=== PATIENT | male | born 1960 | race Caucasian/White ===

== ENCOUNTER 2021-12-30 08:10 | Inpatient (IN) ==
[2021-12-30] MEDS ORDERED: ONDANSETRON INJ 2 MG/ML 2 ML VIAL IV STA (08:32)
[2021-12-30] MEDS ORDERED: SODIUM CHLORIDE 0.9% 1000ML 2,000 ML IV ONE (08:32)
--- NOTE | 2021-12-30 08:34 | Emergency Department Note ---
Impression & Plan Pancolitis, Hypomagnesemia, Acute dehydration, Exacerbation of Crohn's disease, Failure of outpatient treatment ED Provider Note Name: BERNA ELLIOTT Age: 61 Sex: M Arrives Via: Walk-In Informant: Patient ED Provider: Alejo Ham MD Chief Complaint: Illness Impression: As per impressions above Medical Decision Makin-year-old male diagnosed with Crohn's within the last year dealt with on and off issues with diarrhea abdominal cramping however the last few weeks have been much worse in the last few days he has been severely weak, with and unable to keep down anything. He arrives hypotensive severely dehydrated appearing and in mild distress. He has some vague diffuse abdominal tenderness palpation but no definitive peritonitis. Labs obtained including lactic acid. Fortunately lactate is normal he is afebrile there is no clear evidence of sepsis at this time. He was given 2 L IV fluids with vast improvement of his blood pressure. Given these issues no previous oral contrast CT I did feel getting CT abdomen pelvis was indicated. Imaging does show significant pancolitis. Labs with mild hypokalemia and given the severity of his illness, his initial hypotension and the CT findings, I suspect he needs to come in for further management and he and are on board with that. Prior Medical Record and Triage/Nursing Notes reviewed by Me Additional history obtained from chart Differentials:Appendicitis, crohn's, anemia, infections, diverticulitis, UTI, obstruction, mesenteric ischemia, aortic pathology, inflammatory bowel disease, renal colic, PUD, pancreatitis, biliary pathology, hernia, volvulus, constipation, as well as other pathologies. Vital Signs: reviewed and remarkable for hypotension Interventions: Normal saline bolus 2 L IV, Solu-Medrol 40 mg IV, magnesium 1 g IV Labs:Reviewed and remarkable for hypomagnesia Imaging:CT abdomen pelvis as per radiologist diffuse pancolitis Consults:Dr. Riley Plan: Disposition:Hospitalization Condition: Good History of Present Illness:Two 1-year-old male arrives for evaluation of illness. Patient notes he has been dealing with worsening abdominal issues over the last few months. Back in October he was diagnosed with a rectal abscess which was drained and he was hospitalized overnight. Since then he has been seen by GI and had an upper and lower endoscopy which revealed evidence of Crohn's disease. Does note some history of irritable bowel type syndromes but no diagnosis of control now for Crohn's. Since then he has been dealing with w orsening diarrhea and generalized fatigue and illness. He notes worsening weakness the last few days. He states he is having trouble with ambulation and standing up. He was seen by GI few days ago who did some labs. He had been on some steroids without improvement. Due to worsening weakness and fatigue he was sent to the ER for further evaluation. Patient denies any black or bloody stools recently. He denies any fevers, chills, syncope, chest pain, shortness of breath, back pain, significant abdominal pain, leg swelling, rashes, headaches or other signs or symptoms. He is not on any recent antibiotics. No recent falls, trauma, injuries. Exertion makes worse and rest makes better. He notes periodic emesis without blood in it. ROS: See above HPI for pertinent positives & negatives. A total of 10 systems reviewed and were otherwise negative. Past Medical History:Crohn's disease, left bundle branch block, mild cardiomyopathy, hypertension, elevated PSA Past Surgical History:Tonsillectomy, right lower leg amputation Family History:See Below Social History:See Below Home Medications:See Below Allergies:nkda Vitals:Blood Pressure: 84/56, Pulse 91, RR 16, T 36.9C, O2 98% on RA Physical Exam: GENERAL: Patient is unwell appearing and in mild distress. Tired,pale, EYES: No scleral icterus, unremarkable pupils. ENT: Mucous membranes dry, no nasal congestion. NECK: No masses appreciated, nomeningismus, trachea is midline. RESPIRATORY: No dyspnea. Clear to auscultation and equal bilaterally. No wheeze, no rhonchi. CARDIOVASCULAR: Regular rate and rhythm.No murmurs, rubs, gallops appreciated. GASTROINTESTINAL: Abdomen soft, non-tender, no peritonitis.Bowel sounds positive.No masses appreciated. BACK: No midline tenderness, no CVA tenderness EXTREMITIES: Normal motion all extremities, no cyanosis, no edema. NEUROLOGIC: Alert and oriented, no acute motor or sensory deficits, no focal weakness, cranial nerves grossly intact. SKIN: No rash, no jaundice, no diaphoresis. PSYCH: Appropriate GCS: 15 ED Course: Times/Reassessments: Does look significantly improved with fluids however still quite weak. Alejo Ham MD Past Med/Surg History Medical History Diuretic-induced hypokalemia H/O lower limb amputation LBBB (left bundle branch block) Peripheral edema Surgical History S/P below knee amputation S/P tonsillectomy Family History Father Diabetes Other Cardiac disorder Hypertension Social History Smoking Status: Never smoker Second Hand Exposure: No; Do You Dip or Chew Tobacco: No; Tobacco Cessation Education Requested by Patient: No Hx Alcohol Use: Yes Alcohol type: beer, wine and hard liquor Hx Substance Use: No Preferred Language: [place] Communication Ability: Effective Senior Search Marketing Analyst Required: No Beliefs That Will Affect Care: Quaker marital status: Current Living Situation: Spouse current occupational status: employed current occupation: Vice President Of Finance Other Information That Helps Us Care for You: No Feels Safe at Home: Yes Safety Concerns: Feels Safe At This Time Assistive Devices: None Allergies Allergies Allergy/AdvReac Type Severity Reaction Status Date / Time No Known Allergies Allergy Verified 12/30/21 09:15 Home Meds Home Medications Medication Instructions Recorded Confirmed carvedilol 25 mg tablet 25 mg PO BID tab 03/30/20 12/30/21 budesonide 3 mg 3 mg PO TID ea 12/28/21 12/30/21 capsule,delayed,extended release ferrous sulfate 325 mg (65 mg 325 mg PO DAILY 12/28/21 12/30/21 iron) tablet loperamide 2 mg tablet (Imodium 2 mg PO DIRECTED PRN 12/30/21 12/30/21 A-D) promethazine 50 mg tablet 50 mg PO Q4H PRN 12/30/21 12/30/21 Previous Rx's Medication Instructions Recorded potassium chloride 20 mEq 40 meq PO BID #360 tab 12/15/21 tablet,extended release(part/cryst) Results & Data (ED) Vital Signs Vital Signs - 24 hr 12/30/21 08:14 12/30/21 08:54 12/30/21 10:11 Temperature 36.9 C Temperature Source Oral Pulse Rate 91 H Pulse Rate [Right Finger] 86 80 Pulse Rhythm [Right Finger] Regular Regular Pulse Strength [Right Finger] Normal Normal Respiratory Rate 16 17 17 Respiratory Effort / Characteristics Non-Labored Spontaneous Non-Labored Spontaneous Respiratory Depth Normal Normal Respiratory Pattern Regular Regular Blood Pressure 84/56 L Blood Pressure [Left Arm] 91/51 L 114/62 Blood Pressure Mean 65 Blood Pressure Mean [Left Arm] 64 79 Blood Pressure Position [Left Arm] Lying Lying Pulse Oximetry 98 97 97 Oxygen Delivery Method Room Air Room Air Room Air Sepsis Recent Fever Within 48 Hours No Sepsis New/Unexplained Change in Mental Status No Sepsis Action Taken by Nursing No Action Required Laboratory Data Result diagrams: 12/30/21 08:50 12/30/21 08:50 Lab Results 12/30/21 12/30/21 12/30/21 Range/Units 08:50 08:50 08:50 WBC (4.8-10.8) K/uL RBC (4.7-6.1) M/uL Hgb (14.0-18.0) g/dL Hct (42-52) % MCV (80-100) fL MCH (25-34) pg MCHC (32-36) g/dL RDW Std Deviation (36.4-46.3) fL RDW Coeff of Johnna (11.5-14.5) % Plt Count (130-400) K/uL MPV (7.4-10.4) fL Immature Gran % (Auto) % Neut % (Auto) % Lymph % (Auto) % Baker % (Auto) % Eos % (Auto) % Baso % (Auto) % Neut # (Auto) (1.4-6.5) K/uL Lymph # (Auto) (1.2-3.4) K/uL Baker # (Auto) (0.11-0.59) K/uL Eos # (Auto) (0-0.5) K/uL Baso # (Auto) (0-0.2) K/uL Immature Gran # (Auto) (0.00-0.02) K/uL Echinocytes ESR 46 H (0-20) mm/hr Sodium 132 L (136-145) mmol/L Potassium 4.2 (3.5-5.1) mmol/L Chloride 104 (98-107) mmol/L Carbon Dioxide 22 (21-32) mmol/L Anion Gap 6 (3-11) BUN 17 (6-23) mg/dl Creatinine 1.07 (0.6-1.4) mg/dl Est Cr Clr Drug Dosing 83.4 ml/min Est GFR ( Amer) 86.4 ml/min Est GFR (Non-Af Amer) 74.5 ml/min BUN/Creatinine Ratio 15.9 (10-20) Glucose 115 H (70-99(Fasting)) mg/dl Lactate 0.9 (0.4-2.0) mmol/L Calcium 7.4 L (8.5-10.1) mg/dl Magnesium 1.5 L (1.7-2.4) mg/dl Total Bilirubin 0.9 (0.2-1.0) mg/dl Direct Bilirubin 0.2 (0-0.2) mg/dl AST 6 L (13-39) U/L ALT 13 (7-52) U/L Alkaline Phosphatase 63 (34-104) U/L Troponin I High Sens 6.6 (0-20) pg/ml C-Reactive Protein 13.16 H (0-0.5) mg/dl Total Protein 5.2 L (6.0-8.3) gm/dl Albumin 2.2 L (3.4-5.0) gm/dl Lipase 3 L (11-82) U/L Procalcitonin (0-0.5) ng/ml Urine Color Urine Appearance (Clear) Urine pH (4.5-7.5) Ur Specific [place] (1.000-1.030) Urine Protein (Negative) Urine Glucose (UA) (Negative) Urine Ketones (Negative) Urine Blood (Negative) Urine Nitrite (Negative) Urine Bilirubin (Negative) Urine Urobilinogen (Negative) Ur Leukocyte Esterase (Negative) Lyme Disease IgG Ab (Negative) Lyme Disease IgM Ab (Negative) SARS-CoV-2, RNA, NAAT (NEGATIVE) 12/30/21 12/30/21 12/30/21 Range/Units 08:50 08:50 10:30 WBC 8.66 (4.8-10.8) K/uL RBC 4.27 L (4.7-6.1) M/uL Hgb 10.5 L (14.0-18.0) g/dL Hct 32.4 L (42-52) % MCV 75.9 L (80-100) fL MCH 24.6 L (25-34) pg MCHC 32.4 (32-36) g/dL RDW Std Deviation 43.1 (36.4-46.3) fL RDW Coeff of Johnna 15.4 H (11.5-14.5) % Plt Count 400 (130-400) K/uL MPV 8.1 (7.4-10.4) fL Immature Gran % (Auto) 0.5 % Neut % (Auto) 74.7 % Lymph % (Auto) 21.4 % Baker % (Auto) 1.4 % Eos % (Auto) 2.0 % Baso % (Auto) 0.0 % Neut # (Auto) 6.48 (1.4-6.5) K/uL Lymph # (Auto) 1.85 (1.2-3.4) K/uL Baker # (Auto) 0.12 (0.11-0.59) K/uL Eos # (Auto) 0.17 (0-0.5) K/uL Baso # (Auto) 0.00 (0-0.2) K/uL Immature Gran # (Auto) 0.04 H (0.00-0.02) K/uL Echinocytes 1+ ESR (0-20) mm/hr Sodium (136-145) mmol/L Potassium (3.5-5.1) mmol/L Chloride (98-107) mmol/L Carbon Dioxide (21-32) mmol/L Anion Gap (3-11) BUN (6-23) mg/dl Creatinine (0.6-1.4) mg/dl Est Cr Clr Drug Dosing ml/min Est GFR ( Amer) ml/min Est GFR (Non-Af Amer) ml/min BUN/Creatinine Ratio (10-20) Glucose (70-99(Fasting)) mg/dl Lactate (0.4-2.0) mmol/L Calcium (8.5-10.1) mg/dl Magnesium (1.7-2.4) mg/dl Total Bilirubin (0.2-1.0) mg/dl Direct Bilirubin (0-0.2) mg/dl AST (13-39) U/L ALT (7-52) U/L Alkaline Phosphatase (34-104) U/L Troponin I High Sens (0-20) pg/ml C-Reactive Protein (0-0.5) mg/dl Total Protein (6.0-8.3) gm/dl Albumin (3.4-5.0) gm/dl Lipase (11-82) U/L Procalcitonin 0.34 (0-0.5) ng/ml Urine Color [place] Urine Appearance Clear (Clear) Urine pH 5.5 (4.5-7.5) Ur Specific [place] 1.007 (1.000-1.030) Urine Protein Negative (Negative) Urine Glucose (UA) Negative (Negative) Urine Ketones Negative (Negative) Urine Blood Negative (Negative) Urine Nitrite Negative (Negative) Urine Bilirubin Negative (Negative) Urine Urobilinogen Negative (Negative) Ur Leukocyte Esterase Negative (Negative) Lyme Disease IgG Ab Negative (Negative) Lyme Disease IgM Ab Negative (Negative) SARS-CoV-2, RNA, NAAT (NEGATIVE) 12/30/21 Range/Units 11:40 WBC (4.8-10.8) K/uL RBC (4.7-6.1) M/uL Hgb (14.0-18.0) g/dL Hct (42-52) % MCV (80-100) fL MCH (25-34) pg MCHC (32-36) g/dL RDW Std Deviation (36.4-46.3) fL RDW Coeff of Johnna (11.5-14.5) % Plt Count (130-400) K/uL MPV (7.4-10.4) fL Immature Gran % (Auto) % Neut % (Auto) % Lymph % (Auto) % Baker % (Auto) % Eos % (Auto) % Baso % (Auto) % Neut # (Auto) (1.4-6.5) K/uL Lymph # (Auto) (1.2-3.4) K/uL Baker # (Auto) (0.11-0.59) K/uL Eos # (Auto) (0-0.5) K/uL Baso # (Auto) (0-0.2) K/uL Immature Gran # (Auto) (0.00-0.02) K/uL Echinocytes ESR (0-20) mm/hr Sodium (136-145) mmol/L Potassium (3.5-5.1) mmol/L Chloride (98-107) mmol/L Carbon Dioxide (21-32) mmol/L Anion Gap (3-11) BUN (6-23) mg/dl Creatinine (0.6-1.4) mg/dl Est Cr Clr Drug Dosing ml/min Est GFR ( Amer) ml/min Est GFR (Non-Af Amer) ml/min BUN/Creatinine Ratio (10-20) Glucose (70-99(Fasting)) mg/dl Lactate (0.4-2.0) mmol/L Calcium (8.5-10.1) mg/dl Magnesium (1.7-2.4) mg/dl Total Bilirubin (0.2-1.0) mg/dl Direct Bilirubin (0-0.2) mg/dl AST (13-39) U/L ALT (7-52) U/L Alkaline Phosphatase (34-104) U/L Troponin I High Sens (0-20) pg/ml C-Reactive Protein (0-0.5) mg/dl Total Protein (6.0-8.3) gm/dl Albumin (3.4-5.0) gm/dl Lipase (11-82) U/L Procalcitonin (0-0.5) ng/ml Urine Color Urine Appearance (Clear) Urine pH (4.5-7.5) Ur Specific [place] (1.000-1.030) Urine Protein (Negative) Urine Glucose (UA) (Negative) Urine Ketones (Negative) Urine Blood (Negative) Urine Nitrite (Negative) Urine Bilirubin (Negative) Urine Urobilinogen (Negative) Ur Leukocyte Esterase (Negative) Lyme Disease IgG Ab (Negative) Lyme Disease IgM Ab (Negative) SARS-CoV-2, RNA, NAAT NEGATIVE (NEGATIVE) Administered Medications Lactated Ringer's (Lr) 1,000 mls @ 110 mls/hr IV .Q9H6M ONE Stop: 12/30/21 21:17 Last Admin: 12/30/21 12:21 Dose: 110 mls/hr Documented by: [id number] Discontinued Medications Sodium Chloride (Nss 1000ml) 2,000 mls @ 999 mls/hr IV .Q2H1M ONE Stop: 12/30/21 10:32 Last Infusion: 12/30/21 10:12 Dose: 0 mls/hr Documented by: [id number] Admin: 12/30/21 09:00 Dose: 999 mls/hr Documented by: [id number] Magnesium Sulfate/Dextrose (Magnesium Sulfate / D5w) 1 gm in 100 mls @ 100 mls/hr IV NOW STA Stop: 12/30/21 12:03 Last Infusion: 12/30/21 12:10 Dose: 0 mls/hr Documented by: [id number] Admin: 12/30/21 11:13 Dose: 100 mls/hr Documented by: [id number] Ioversol (Optiray 320 100ml) 94 ml IV ONCE ONE Stop: 12/30/21 11:00 Last Admin: 12/30/21 10:59 Dose: 94 ml Documented by: [id number] Methylprednisolone (Methylprednisolone 40 Mg/Ml Vial) 40 mg IV NOW STA Stop: 12/30/21 11:39 Last Admin: 12/30/21 12:16 Dose: 40 mg Documented by: [id number] Ondansetron HCl (Ondansetron Inj 2 Mg/Ml 2 Ml Vial) 4 mg IV NOW STA Stop: 12/30/21 08:33 Last Admin: 12/30/21 09:00 Dose: 4 mg Documented by: [id number] Imaging Data Radiologist's Impression: Abdomen/Pelvis CT 12/30/21 08:32 CT OF THE ABDOMEN AND PELVIS WITH CONTRAST CLINICAL HISTORY: crohn's, recent rectal abscess, hypotension COMPARISON STUDY: Prostate MRI April 01, 2019. TECHNIQUE: Following IV administration of 94 mL of Optiray, axial images of the abdomen and pelvis were obtained from the lung bases to the proximal femurs. Images were reviewed in the axial, sagittal, and coronal planes. IV contrast was administered without complication. Automated exposure control was utilized for the study. A dose lowering technique was utilized adhering to the principles of ALARA. Oral contrast was administered. CT DOSE: 553.87 mGy.cm FINDINGS: Small hiatal hernia is present. Trace pericardial effusion is noted. No pneumatosis, free air or portal venous gas is present. The liver, spleen, adrenal glands, kidneys and pancreas are unremarkable. There is no hydronephrosis. No biliary or pancreatic ductal dilatation is present. There are gallstones within the gallbladder. There is no evidence for acute cholecystitis. There is no evidence for a bowel obstruction. The appendix is normal. Moderate wall thickening of the sigmoid colon and descending colon is noted. There is mild wall thickening of the remainder of the colon. The findings represent a proctocolitis. Associated mesenteric vessels are prominent there is mild pericolonic stranding. There is no free air or abscess. Decreased haustration of the colon is noted. No perirectal/perianal abscess is present. Prostate is enlarged, measuring 5.3 cm in transverse dimension. Major vasculature is patent. No acute fracture or suspicious lesion is identified within the visualized skeletal structures. There are small bilateral fat-containing inguinal hernias. IMPRESSION: 1. Findings consistent with a moderate pancolitis. This could be infectious or inflammatory in etiology. No free air or abscess. 2. No perirectal abscess. 3. Cholelithiasis. No evidence for acute cholecystitis. ACT 112: Negative or not required by law. Electronically signed by: Darryn Sanchez M.D. 12/30/2021 11:21 AM Discharge Plan Visit Data Chief Complaint: GI Assessment Stated Complaint: UNABLE TO EAT OR DRINK, HX CROHN'S ED Provider: Alejo Ham Discharge Problem: Pancolitis, Hypomagnesemia, Acute dehydration, Exacerbation of Crohn's disease, Failure of outpatient treatment Discharge Instructions Interventions: ED Discharge Assessment Last Done: 12/30/21 13:41 Discharge Problem: Exacerbation of Crohn's disease Qualifiers: Digestive disease complication type: without complication Qualified Code(s): K50.90 - Crohn's disease, unspecified, without complications
[2021-12-30 09:08] LABS: Hematocrit (blood only) 32.4 % (42-52); Hemoglobin 10.5 g/dL (14.0-18.0); Mean Corpuscular Hemoglobin 24.6 pg (25-34); Mean Corpuscular Hgb Conc 32.4 g/dL (32-36); Mean Corpuscular Volume 75.9 fL (80-100); Mean Platelet Volume 8.1 fL (7.4-10.4); Platelet Count 400 K/uL (130-400); RDW Coefficient of Variation 15.4 % (11.5-14.5); RDW Standard Deviation 43.1 fL (36.4-46.3); Red Blood Count 4.27 M/uL (4.7-6.1); White Blood Count 8.66 K/uL (4.8-10.8)
[2021-12-30 09:27] LABS: Echinocytes 1+; Eosinophils # (auto) 0.17 K/uL (0-0.5); Immature Granulocytes # (auto) 0.04 K/uL (0.00-0.02); Immature Granulocytes % (auto) 0.5 %; Lymphocytes # (auto) 1.85 K/uL (1.2-3.4); Lymphocytes % (auto) 21.4 %; Monocytes # (auto) 0.12 K/uL (0.11-0.59); Monocytes % (auto) 1.4 %; Neutrophils # (auto) 6.48 K/uL (1.4-6.5); Neutrophils % (auto) 74.7 %
[2021-12-30 09:43] LABS: BUN Creatinine Ratio 15.9 (10-20); C Reactive Protein 13.16 mg/dl (0-0.5); Calcium 7.4 mg/dl (8.5-10.1); Creatinine Clr Calc Pharmacy 83.4 ml/min; Est GFR (African American) 86.4 ml/min; Est GFR (Non-African American) 74.5 ml/min; Potassium 4.2 mmol/L (3.5-5.1)
[2021-12-30 09:45] LABS: Troponin I High Sensitivity 6.6 pg/ml (0-20)
[2021-12-30 09:48] LABS: Procalcitonin 0.34 ng/ml (0-0.5)
[2021-12-30 09:54] LABS: Lyme Ab IgG w/WB Rflx Negative (Negative); Lyme Ab IgM w/WB Rflx Negative (Negative)
[2021-12-30 10:22] LABS: Albumin Level 2.2 gm/dl (3.4-5.0); Bilirubin Direct 0.2 mg/dl (0-0.2); Bilirubin,Total 0.9 mg/dl (0.2-1.0); Magnesium 1.5 mg/dl (1.7-2.4); Total Protein 5.2 gm/dl (6.0-8.3)
--- NOTE | 2021-12-30 10:44 | Electrocardiogram Report ---
Test Reason : Blood Pressure : / mmHG Vent. Rate : 086 BPM Atrial Rate : 086 BPM P-R Int : 162 ms QRS Dur : 162 ms QT Int : 390 ms P-R-T Axes : 032 -40 098 degrees QTc Int : 466 ms Normal sinus rhythm Left axis deviation Left bundle branch block Abnormal ECG No previous ECGs available Confirmed by Ponce Arreguin ([id number]) on 12/30/2021 10:43:59 AM Referred By: REFERRED SELF Confirmed By:Ponce Arreguin
[2021-12-30 10:51] LABS: Appearance Urine Clear (Clear); Bilirubin Urine Negative (Negative); Blood Urine Negative (Negative); Color Urine Orange; Glucose Urine UA Negative (Negative); Ketones Urine Negative (Negative); Leukocyte Esterase Urine Negative (Negative); Nitrite Urine Negative (Negative); Protein Urine Negative (Negative); Specific Gravity Urine 1.007 (1.000-1.030); Urobilinogen Urine Negative (Negative); pH Urine 5.5 (4.5-7.5)
[2021-12-30] MEDS ORDERED: OPTIRAY 320 100ml IV ONE (10:59)
[2021-12-30] MEDS ORDERED: MAGNESIUM SULFATE / D5W 1 GM/100 ML BAG IV STA (11:04)
--- NOTE | 2021-12-30 11:23 | CT Scan Report ---
CT OF THE ABDOMEN AND PELVIS WITH CONTRAST CLINICAL HISTORY: crohn's, recent rectal abscess, hypotension COMPARISON STUDY: Prostate MRI April 01, 2019. TECHNIQUE: Following IV administration of 94 mL of Optiray, axial images of the abdomen and pelvis we re obtained from the lung bases to the proximal femurs. Images were reviewed in the axial, sagittal, and coronal planes. IV contrast was administered without complication. Automated exposure control wa s utilized for the study. A dose lowering technique was utilized adhering to the principles of ALARA . Oral contrast was administered. CT DOSE: 553.87 mGy.cm FINDINGS: Small hiatal hernia is present. Trace pericardial effusion is noted. No pneumatosis, free a ir or portal venous gas is present. The liver, spleen, adrenal glands, kidneys and pancreas are unrem arkable. There is no hydronephrosis. No biliary or pancreatic ductal dilatation is present. There are gallstones within the gallbladder. There is no evidence for acute cholecystitis. There is no evidenc e for a bowel obstruction. The appendix is normal. Moderate wall thickening of the sigmoid colon and descending colon is noted. There is mild wall thickening of the remainder of the colon. The findings represent a proctocolitis. Associated mesenteric vessels are prominent there is mild pericolonic stra nding. There is no free air or abscess. Decreased haustration of the colon is noted. No perirectal/pe rianal abscess is present. Prostate is enlarged, measuring 5.3 cm in transverse dimension. Major vasc ulature is patent. No acute fracture or suspicious lesion is identified within the visualized skeleta l structures. There are small bilateral fat-containing inguinal hernias. IMPRESSION: 1. Findings consistent with a moderate pancolitis. This could be infectious or inflammatory in etiolo gy. No free air or abscess. 2. No perirectal abscess. 3. Cholelithiasis. No evidence for acute cholecystitis. ACT 112: Negative or not required by law. Electronically signed by: Darryn Sanchez M.D. 12/30/2021 11:21 AM
[2021-12-30] MEDS ORDERED: LACTATED RINGER'S 1,000 ML IV ONE (12:12)
--- NOTE | 2021-12-30 12:33 | History & Physical Report ---
Date of Service December 30, 2021 Assessment & Plan (1) Crohn's ileocolitis: Plan: Patient follows with [facility] for Chron's- fatigue, loss of appetite and diarrhea, - Methyl Pred- 40mg IV now and then daily - Nutritional consultation for supplementation - LR for 1 Liter - not infectious appearing, no abdominal pain, lactate negative - +/- lopermide - Miralax (2) Hypomagnesemia: Plan: Mag 1.5 on admission- remains with diarrhea - replete 3 GM mag - Telemetry overnight (3) Cardiomyopathy: Plan: CM with EF 25-30% - Continue with Carvedilol - asymptomatic (4) Hypertension: Plan: Controlled with above (5) Benign prostatic hyperplasia with urinary obstruction: History of Present Illness Primary Care Provider: Rufus Edwards 61 YOM with history of: Traumatic amputation of right lower leg (1977), arrhythmia, [employer] with with reduced EF (follows with Dr. lAbrecht), Chron's ileocolitis, anemia, HTN. Patient comes to the EMD today for continued low energy, no appetite, and diarrhea. The patient diagnosed with Chron's colitis. He had flare up of symptoms around and Last meal he can remember eating fully was around . He was evaluated by [facility] on 12/28/21- he had initial lab work completed at that time for biologic therapy evaluation. Patient states that after he eats or drinks anything he has to go to the bathroom within 30 minutes. His stools are mostly liquid with no particles. No blood or Mucous and most of the time is associated with left lower quadrant abdominal pain. He was previously on Mesalamine and this has been discontinued, he is on Budesonide 3mg PO. Will initiate Methylpred 40mg IV daily. Will consult GI. Nutrition consult with support. He has tried BOOST at home and has done OK with that. He is noted to have low Mag at 1.5 on admission and concentrated urine. Will replete mag and add LR on for 1L. COVID test: NEGATIVE Allergies Allergy/AdvReac Type Severity Reaction Status Date / Time No Known Allergies Allergy Verified 12/30/21 09:15 Home Medications Medication Instructions Recorded Confirmed Type carvedilol 25 mg tablet 25 mg PO BID tab 03/30/20 12/30/21 History potassium chloride 20 mEq 40 meq PO BID #360 tab 12/15/21 12/30/21 Rx tablet,extended release(part/cryst) budesonide 3 mg 3 mg PO TID ea 12/28/21 12/30/21 History capsule,delayed,extended release ferrous sulfate 325 mg (65 mg 325 mg PO DAILY 12/28/21 12/30/21 History iron) tablet loperamide 2 mg tablet (Imodium 2 mg PO DIRECTED PRN 12/30/21 12/30/21 History A-D) promethazine 50 mg tablet 50 mg PO Q4H PRN 12/30/21 12/30/21 History Past Med/Surg History Medical History Diuretic-induced hypokalemia H/O lower limb amputation LBBB (left bundle branch block) Peripheral edema Surgical History S/P below knee amputation S/P tonsillectomy Family History Father Diabetes Other Cardiac disorder Hypertension Social History Smoking Status: Never smoker Second Hand Exposure: No; Do You Dip or Chew Tobacco: No; Tobacco Cessation Education Requested by Patient: No Hx Alcohol Use: Yes Alcohol type: beer, wine and hard liquor Hx Substance Use: No Preferred Language: Mexican Communication Ability: Effective Grain Cleaner Required: No Beliefs That Will Affect Care: Evangelical marital status: Current Living Situation: Spouse current occupational status: employed current occupation: Account General Manager Other Information That Helps Us Care for You: No Feels Safe at Home: Yes Safety Concerns: Feels Safe At This Time Assistive Devices: None Review of Systems Review of Systems: REVIEW OF SYSTEMS: Constitutional: (+) generalized fatigue, No fever, sweats or chills Eyes: No diplopia, no worsening or blurred vision ENT: normal hearing, no trouble swallowing Respiratory: No cough, sputum, dyspnea at rest or on exertion Cardiovascular: No chest pain, tightness or palpitations Abdomen: (+) pain, nausea, diarrhea, vomiting, or constipation Musculoskeletal: (+) amputation right leg, No joint pain, calf pain, swelling Neurologic: No weakness, numbness/tingling, or balance problems Psychiatric: No anxiety or depression Skin: No rash or itch Physical Exam Physical Exam: PHYSICAL EXAM: General: awake, alert, no apparent distress Head: Normocephalic, atraumatic ENT: PERRL, EOMI, no pharyngeal exudate, mucous membranes dry Neuro: AAO x 3, speech clear and appropriate, strength intact bilaterally 5/5, sensation intact and equal all extremities and dermatomes, no pronator drift Chest: equal rise and fall of the chest, no accessory muscle use, no heaves or thrills, Clear to auscultation, on room air, Cardiac: Regular rate and rhythm, telemetry reviewed, skin warm dry, cap refill <3 seconds, peripheral pulses +2 no JVD, no murmur, no JVD, no edema GI: NABS hypoactive, quadrants, soft, nontender to palpation, no rebound, guarding or tenderness : Spontaneously voiding, no pain, no CVA tenderness, Extremities: Normal inspection, no peripheral edema or erythema, calfs nontender to palpation Psych: Normal mood and affect Skin: no rash or erythema Results & Data Results & Data ([facility]) Vital Signs (Past 12 Hours) Vital Signs Temp Pulse Pulse Resp BP BP Pulse Ox 12/30/21 10:11 80 17 114/62 97 12/30/21 08:54 86 17 91/51 L 97 12/30/21 08:14 36.9 C 91 H 16 84/56 L 98 Laboratory Results Abnormal lab results 12/30/21 12/30/21 12/30/21 Range/Units 08:50 08:50 08:50 RBC 4.27 L (4.7-6.1) M/uL Hgb 10.5 L (14.0-18.0) g/dL Hct 32.4 L (42-52) % MCV 75.9 L (80-100) fL MCH 24.6 L (25-34) pg RDW Coeff of Johnna 15.4 H (11.5-14.5) % Immature Gran # (Auto) 0.04 H (0.00-0.02) K/uL ESR 46 H (0-20) mm/hr Sodium 132 L (136-145) mmol/L Glucose 115 H (70-99(Fasting)) mg/dl Calcium 7.4 L (8.5-10.1) mg/dl Magnesium 1.5 L (1.7-2.4) mg/dl AST 6 L (13-39) U/L C-Reactive Protein 13.16 H (0-0.5) mg/dl Total Protein 5.2 L (6.0-8.3) gm/dl Albumin 2.2 L (3.4-5.0) gm/dl Lipase 3 L (11-82) U/L Diagnostic Findings Pelvis CT 12/30/21 08:32 CT OF THE ABDOMEN AND PELVIS WITH CONTRAST CLINICAL HISTORY: crohn's, recent rectal abscess, hypotension COMPARISON STUDY: Prostate MRI April 01, 2019. TECHNIQUE: Following IV administration of 94 mL of Optiray, axial images of the abdomen and pelvis were obtained from the lung bases to the proximal femurs. Images were reviewed in the axial, sagittal, and coronal planes. IV contrast was administered without complication. Automated exposure control was utilized for the study. A dose lowering technique was utilized adhering to the principles of ALARA. Oral contrast was administered. CT DOSE: 553.87 mGy.cm FINDINGS: Small hiatal hernia is present. Trace pericardial effusion is noted. No pneumatosis, free air or portal venous gas is present. The liver, spleen, adrenal glands, kidneys and pancreas are unremarkable. There is no hydronephrosis. No biliary or pancreatic ductal dilatation is present. There are gallstones within the gallbladder. There is no evidence for acute cholecystitis. There is no evidence for a bowel obstruction. The appendix is normal. Moderate wall thickening of the sigmoid colon and descending colon is noted. There is mild wall thickening of the remainder of the colon. The findings represent a proctocolitis. Associated mesenteric vessels are prominent there is mild pericolonic stranding. There is no free air or abscess. Decreased haustration of the colon is noted. No perirectal/perianal abscess is present. Prostate is enlarged, measuring 5.3 cm in transverse dimension. Major vasculature is patent. No acute fracture or suspicious lesion is identified within the visualized skeletal structures. There are small bilateral fat-containing inguinal hernias. IMPRESSION: 1. Findings consistent with a moderate pancolitis. This could be infectious or inflammatory in etiology. No free air or abscess. 2. No perirectal abscess. 3. Cholelithiasis. No evidence for acute cholecystitis. ACT 112: Negative or not required by law. Electronically signed by: Darryn Sanchez M.D. 12/30/2021 11:21 AM Medications Administered Home Medications carvedilol 25 mg tablet 25 mg PO BID tab 03/30/20 [History Confirmed 12/30/21] potassium chloride 20 mEq tablet,extended release(part/cryst) 40 meq PO BID #360 tab 12/15/21 [Rx Confirmed 12/30/21] budesonide 3 mg capsule,delayed,extended release 3 mg PO TID ea 12/28/21 [History Confirmed 12/30/21] ferrous sulfate 325 mg (65 mg iron) tablet 325 mg PO DAILY 12/28/21 [History Confirmed 12/30/21] loperamide 2 mg tablet (Imodium A-D) 2 mg PO DIRECTED PRN 12/30/21 [History Confirmed 12/30/21] promethazine 50 mg tablet 50 mg PO Q4H PRN 12/30/21 [History Confirmed 12/30/21] Active Medications Lactated Ringer's (Lr) 1,000 mls @ 110 mls/hr IV .Q9H6M ONE Stop: 12/30/21 21:17 Last Admin: 12/30/21 12:21 Dose: 110 mls/hr Documented by: ECG Additional Comments: Normal sinus rhythm Left axis deviation Left bundle branch block Abnormal ECG No previous ECGs available Confirmed by Ponce Arreguin ([id number]) on 12/30/2021 10:43:59 AM Code Status & VTE Plan VTE Prophylaxis Plan VTE Prophylaxis will be ordered: Yes Supervising Physician Co-Signing Physician Notes Patient was seen and examined independently I discussed the case with Ritesh HAMPTON I reviewed pertinent past medical social family history and also the plan of care and agree with the plan of care. History of Crohns, recently worsening, seen outpt GI and considered for biologic agent, started on budesonide but failed outpt treatment due to diarrhea, inability to keep up with po intake. initially thought this was Crohns flare and was given steroids in ER, found to be C diff toxin positive, started on po vancomycin IN ER has low magnesium, mild anemia, hypponateremia Exam with hypoactive bowel sounds, non acute abdomen imaging with colonic inflammation continue vancomycin, ivf, replete mag, supportive care Any exceptions will be noted below PG Care Time/CCT Total # of Minutes Spent Total Time Spent with Patient: Total time spent is greater than 50% in coordination of care (as documented) at patient's floor/unit and/or counseling patient: Coding Level of Care Code 98162 Initial Inpt Care Lvl 2 Diagnoses Crohn's ileocolitis K50.80 Cardiomyopathy I42.9 Hypertension I10 Benign prostatic hyperplasia with urinary obstruction N40.1; N13.8 Hypomagnesemia E83.42
[2021-12-30] MEDS ORDERED: POLYETHYLENE (MIRALAX) 17 GM PACK PO PRN (13:38)
[2021-12-30] MEDS ORDERED: GLUCOSE 10 TABS/TUBE PO PRN (13:38)
[2021-12-30] MEDS ORDERED: DEXTROSE 50% 50 ML SYRINGE IV PRN (13:38)
[2021-12-30] MEDS ORDERED: GLUCAGON FOR INJ 1 MG VIAL SQ PRN (13:38)
[2021-12-30] MEDS ORDERED: ACETAMINOPHEN 325 MG TAB PO PRN (13:38)
[2021-12-30] MEDS ORDERED: GLUCOSE 40% GEL 15 GM TUBE PO PRN (13:38)
[2021-12-30] MEDS ORDERED: CARBOHYDRATES FOR HYPOGLYCEMIA PO PRN (13:38)
[2021-12-30 14:04] LABS: Adenovirus F 40/41 PCR Not Detected (NotDetected); Astrovirus PCR Not Detected (NotDetected); Campylobacter PCR Not Detected (NotDetected); Cryptosporidium PCR Not Detected (NotDetected); Cyclospora cayetanensis PCR Not Detected (NotDetected); Entamoeba histolytica PCR Not Detected (NotDetected); Enteroaggregative E.coli(EAEC) Not Detected (NotDetected); Enteropathogenic E.coli (EPEC) Not Detected (NotDetected); Enterotoxigenic E.coli (ETEC) Not Detected (NotDetected); Giardia lamblia PCR Not Detected (NotDetected); Norovirus GI/GII PCR Not Detected (NotDetected); Plesiomonas shigelloides PCR Not Detected (NotDetected); Rotavirus A PCR Not Detected (NotDetected); Salmonella PCR Not Detected (NotDetected); Sapovirus PCR Not Detected (NotDetected); Shiga-like Toxin E.coli (STEC) Not Detected (NotDetected); Shigella/Enteroinvasive E.coli Not Detected (NotDetected); Vibrio cholerae PCR Not Detected (NotDetected); Vibrio species PCR Not Detected (NotDetected); Yersinia enterocolitica PCR Not Detected (NotDetected)
[2021-12-30 14:53] LABS: Cdiff Antigen Positive
[2021-12-30 14:54] LABS: Cdiff Toxin A+B Positive Cdiff Toxin (Negative)
[2021-12-30] MEDS ORDERED: VANCOMYCIN HCL 125 MG/2.5ML SOLN PO STA (15:13)
[2021-12-30] MEDS ORDERED: RASPBERRY SYRUP 5 ML UDP PO STA (15:13)
[2021-12-30] MEDS: MAGNESIUM SULFATE / D5W 1 GM/100 ML BAG IV SCH ×3 (16:07→20:21)
[2021-12-30] MEDS ORDERED: VANCOMYCIN HCL 125 MG/2.5ML SOLN PO SCH (18:00)
[2021-12-30] MEDS ORDERED: RASPBERRY SYRUP 5 ML UDP PO SCH (18:00)
[2021-12-30] MEDS: POTASSIUM CHLORIDE CRTAB 20 MEQ TABCR PO SCH (20:13)
[2021-12-30] MEDS: carvediloL 25 MG TAB PO SCH (20:13)
[2021-12-30] MEDS: RASPBERRY SYRUP 5 ML UDP PO SCH (21:06)
[2021-12-30] MEDS: VANCOMYCIN HCL 125 MG/2.5ML SOLN PO SCH (21:06)
[2021-12-31] MEDS: RASPBERRY SYRUP 5 ML UDP PO SCH ×4 (03:03→22:03)
[2021-12-31] MEDS: VANCOMYCIN HCL 125 MG/2.5ML SOLN PO SCH ×4 (03:03→22:03)
[2021-12-31 07:28] LABS: Hematocrit (blood only) 29.2 % (42-52); Hemoglobin 9.5 g/dL (14.0-18.0); Mean Corpuscular Hemoglobin 24.6 pg (25-34); Mean Corpuscular Hgb Conc 32.5 g/dL (32-36); Mean Corpuscular Volume 75.6 fL (80-100); Mean Platelet Volume 8.3 fL (7.4-10.4); Platelet Count 439 K/uL (130-400); RDW Coefficient of Variation 15.6 % (11.5-14.5); RDW Standard Deviation 43.3 fL (36.4-46.3); Red Blood Count 3.86 M/uL (4.7-6.1); White Blood Count 7.82 K/uL (4.8-10.8)
[2021-12-31 07:58] LABS: Calcium 7.4 mg/dl (8.5-10.1); Creatinine Clr Calc Pharmacy 112.8 ml/min; Est GFR (African American) 110.6 ml/min; Est GFR (Non-African American) 95.4 ml/min; Magnesium 2.2 mg/dl (1.7-2.4); Potassium 4.3 mmol/L (3.5-5.1)
[2021-12-31 08:01] LABS: Echinocytes 1+; Immature Granulocytes # (auto) 0.03 K/uL (0.00-0.02); Immature Granulocytes % (auto) 0.4 %; Lymphocytes # (auto) 0.63 K/uL (1.2-3.4); Lymphocytes % (auto) 8.1 %; Monocytes # (auto) 0.79 K/uL (0.11-0.59); Monocytes % (auto) 10.1 %; Neutrophils # (auto) 6.37 K/uL (1.4-6.5); Neutrophils % (auto) 81.4 %
[2021-12-31] MEDS: POTASSIUM CHLORIDE CRTAB 20 MEQ TABCR PO SCH ×2 (08:27→22:05)
[2021-12-31] MEDS: carvediloL 25 MG TAB PO SCH ×2 (08:27→22:04)
[2021-12-31] MEDS: FERROUS SULFATE 325 MG TAB PO SCH (08:27)
--- NOTE | 2021-12-31 10:28 | Electrocardiogram Report ---
Test Reason : Blood Pressure : / mmHG Vent. Rate : 061 BPM Atrial Rate : 061 BPM P-R Int : 168 ms QRS Dur : 168 ms QT Int : 482 ms P-R-T Axes : 030 -34 083 degrees QTc Int : 485 ms Normal sinus rhythm Left axis deviation Left bundle branch block Abnormal ECG When compared with ECG of 30-DEC-2021 08:42, No significant change was found Confirmed by Ponce Arreguin ([id number]) on 12/31/2021 10:28:00 AM Referred By: REFERRED SELF Confirmed By:Ponce Arreguin
[2021-12-31] MEDS ORDERED: methylPREDNISolone 40 MG in SYRINGE 0 ML IV SCH (12:00)
[2021-12-31] MEDS: ENOXAPARIN INJ 40 MG/0.4 ML SYR SQ SCH (16:54)
[2021-12-31] MEDS ORDERED: ONDANSETRON INJ 2 MG/ML 2 ML VIAL IV PRN (18:23)
--- NOTE | 2021-12-31 21:13 | Hospitalist Progress Note ---
Date of Service December 31, 2021 Assessment & Plan (1) C. difficile colitis: Plan: Patient admitted with postive C diff testing in stool. Patient was initially treated with one time dose of steroids in ER. But once stool results returned. Steroids were stopped and vancomycin was initated. Usually anticpate about 3 days from start of treatment for symptoms to [place]. Hopefully, some improvement tomorrow. Patient is currently now having any signs of sepsis. P (2) Crohn's ileocolitis: Plan: Patient follows with [facility] for Chron's- fatigue, loss of appetite and diarrhea, (3) Hypomagnesemia: Plan: Mag 1.5 on admission- remains with diarrhea - replete 3 GM mag - Telemetry overnight (4) Cardiomyopathy: Plan: CM with EF 25-30% - Continue with Carvedilol - asymptomatic (5) Hypertension: Plan: Controlled with above (6) Benign prostatic hyperplasia with urinary obstruction: Admission and Anticipated Discharge Date Admission Date: December 30, 2021 Subjective 61 yo male reports having moultiple loose stools today. He feels like they are about 2 stool per hour. Patient is also complaining of some nausea. Review of Systems Review of Systems: All systems reviewed & are unremarkable except as noted in HPI & below Physical Exam Physical Exam: General: awake, alert, no apparent distress Head: Normocephalic, atraumatic ENT: PERRL, EOMI, no pharyngeal exudate, mucous membranes dry Neuro: AAO x 3, speech clear and appropriate, strength intact bilaterally 5/5, sensation intact and equal all extremities and dermatomes, no pronator drift Chest: equal rise and fall of the chest, no accessory muscle use, no heaves or thrills, Clear to auscultation, on room air, Cardiac: Regular rate and rhythm, telemetry reviewed, skin warm dry, cap refill <3 seconds, peripheral pulses +2 no JVD, no murmur, no JVD, no edema GI: NABS hypoactive, quadrants, soft, nontender to palpation, no rebound, guarding or tenderness : Spontaneously voiding, no pain, no CVA tenderness, Extremities: Normal inspection, no peripheral edema or erythema, calfs nontender to palpation Psych: Normal mood and affect Skin: no rash or erythema Results & Data Results & Data ([facility]) Vital Signs (Past 12 Hours) Vital Signs Temp Pulse Pulse Resp BP Pulse Ox 12/31/21 19:00 36.6 C 71 20 110/64 100 12/31/21 18:45 36.4 C L 66 18 115/67 98 12/31/21 16:11 63 12/31/21 15:25 36.8 C 63 16 106/61 99 12/31/21 11:53 36.5 C 64 16 119/70 99 PG Care Time/CCT Total # of Minutes Spent Total Time Spent with Patient: Total time spent is greater than 50% in coordination of care (as documented) at patient's floor/unit and/or counseling patient: Coding Level of Care Code 93206 Subseq Hosp Care Lvl 3 Diagnoses Crohn's ileocolitis K50.80 Hypomagnesemia E83.42 Cardiomyopathy I42.9 Hypertension I10 Benign prostatic hyperplasia with urinary obstruction N40.1; N13.8 C. difficile colitis A04.72
[2022-01-01] MEDS: VANCOMYCIN HCL 125 MG/2.5ML SOLN PO SCH ×4 (05:10→21:33)
[2022-01-01] MEDS: RASPBERRY SYRUP 5 ML UDP PO SCH ×4 (05:10→21:33)
[2022-01-01 06:11] LABS: Hematocrit (blood only) 28.5 % (42-52); Hemoglobin 9.2 g/dL (14.0-18.0); Mean Corpuscular Hemoglobin 25.1 pg (25-34); Mean Corpuscular Hgb Conc 32.3 g/dL (32-36); Mean Corpuscular Volume 77.7 fL (80-100); Mean Platelet Volume 8.2 fL (7.4-10.4); Platelet Count 416 K/uL (130-400); RDW Coefficient of Variation 15.3 % (11.5-14.5); RDW Standard Deviation 43.8 fL (36.4-46.3); Red Blood Count 3.67 M/uL (4.7-6.1)
[2022-01-01 06:37] LABS: BUN Creatinine Ratio 22.1 (10-20); Calcium 7.2 mg/dl (8.5-10.1); Creatinine Clr Calc Pharmacy 107.6 ml/min; Est GFR (African American) 108.5 ml/min; Est GFR (Non-African American) 93.6 ml/min; Magnesium 1.7 mg/dl (1.7-2.4); Potassium 4.5 mmol/L (3.5-5.1)
[2022-01-01 06:47] LABS: Basophils # (auto) 0.01 K/uL (0-0.2); Basophils % (auto) 0.2 %; Eosinophils # (auto) 0.09 K/uL (0-0.5); Eosinophils % (auto) 1.6 %; Immature Granulocytes # (auto) 0.04 K/uL (0.00-0.02); Immature Granulocytes % (auto) 0.7 %; Lymphocytes # (auto) 0.82 K/uL (1.2-3.4); Lymphocytes % (auto) 14.1 %; Monocytes # (auto) 0.77 K/uL (0.11-0.59); Monocytes % (auto) 13.3 %; Neutrophils # (auto) 4.07 K/uL (1.4-6.5); Neutrophils % (auto) 70.1 %; Ovalocytes 1+
[2022-01-01] MEDS: POTASSIUM CHLORIDE CRTAB 20 MEQ TABCR PO SCH ×2 (08:31→21:34)
[2022-01-01] MEDS: FERROUS SULFATE 325 MG TAB PO SCH (08:31)
--- NOTE | 2022-01-01 08:49 | Gastrointestinal Consultation ---
Date of Consultation January 01, 2022 Assessment & Plan (1) Crohn's ileocolitis: (2) C. difficile colitis: (3) Anemia: Patient is a 61 yo male with recent diagnosis of Crohn's ileocolitis. Despite initial improvement on Budesonide as prescribed by his general surgeon, his symptoms deteriorated over the weekend and he was admitted and found to be C diff positive. Patient was previously felt to be refractory to steroids, however that was prior to him testing positive for C diff, so I am optimistic that with treatment of his C diff infection that he may start responding as expected to treatment for his Crohn's Disease. -Vancomycin 125 mg QID x 10 days -Hold steroids at present, will need to resume for management of his IBD once C diff has begun to improve -Florastor BID -Patient is currently being set up for outpatient biologic therapy for his severe Crohn's Ileocolitis -Ferrous sulfate 325 mg po daily for anemia -Our office is still working to obtain previous labs, stool studies, imaging studies & office visit notes to understand his prior care -Continue to monitor electrolytes -Low residue diet as tolerated History of Present Illness Reason for Consultation: Crohn's Disease, C Diff Attending Physician: Delvin Vazquez History of Present Illness Patient is a 61 yo male with history of IBD, recently determined to be Crohn's Disease rather than Ulcerative Colitis. He has been under the care of a general surgeon until 12/28/21 when he first visited our outpatient clinic. He was managed for 10 years with mesalamine therapy due to the diagnosis of UC. He notes mild symptoms until 2021. He developed a perirectal abscess in October and was hospitalized and treated for this. He underwent a repeat colonoscopy on 11/30/2021 as he was continuing to experience 10+ episodes of diarrhea daily, rectal bleeding, and weight loss despite high dose corticosteroids. Colonoscopy indicated rectal inflammation, inflammation of the distal transverse colon and descending colon. The cecum and ascending colon were spared. Patient had a wide open IC valve and significant ileitis noted. Biopsies of the terminal ileum indicated chronic, active ileitis with cryptitis and variable villous blunting. Biopsies of the right colon showed chronic active colitis with crypt architectural distortion, rare crypt abscess and focal overlying acute inflammation. Transverse colon biopsies indicated chronic active colitis with granulation tissue and acute and chronic inflammation with crypt architectural distortion and focal cryptitis. Biopsies of the descending colon indicated the same findings. Transferred labs indicate anemia with a hemoglobin of 10. I do not have formal anemia labs, stool studies, or routine blood work but these reportedly have been obtained by PCP and surgeon as well as when he was in the hospital in October 2021 for the abscess. He notes that his diarrhea had been unchanged for several months with 10-20 episodes daily, but he had just started Budesonide 1 week ago and had improvement in bleeding but not frequency of bowel movements. He reports substantial weight loss. His symptoms acutely worsened over the weekend and he was admitted to the hospital for what appeared to be an exacerbation of his Crohn's Disease, but repeat stool studies were positive for C diff. He is currently not on steroids & has begun Vancomycin. H/H 9.2/28.5. Patient notes he has never been positive for C diff in the past. Allergies Allergy/AdvReac Type Severity Reaction Status Date / Time No Known Allergies Allergy Verified 12/30/21 09:15 Home Medications Medication Instructions Recorded Confirmed Type carvedilol 25 mg tablet 25 mg PO BID tab 03/30/20 12/30/21 History potassium chloride 20 mEq 40 meq PO BID #360 tab 12/15/21 12/30/21 Rx tablet,extended release(part/cryst) budesonide 3 mg 3 mg PO TID ea 12/28/21 12/30/21 History capsule,delayed,extended release ferrous sulfate 325 mg (65 mg 325 mg PO DAILY 12/28/21 12/30/21 History iron) tablet loperamide 2 mg tablet (Imodium 2 mg PO DIRECTED PRN 12/30/21 12/30/21 History A-D) promethazine 50 mg tablet 50 mg PO Q4H PRN 12/30/21 12/30/21 History Patient History Medical History Diuretic-induced hypokalemia H/O lower limb amputation LBBB (left bundle branch block) Peripheral edema Surgical History S/P below knee amputation S/P tonsillectomy Family History Father Diabetes Other Cardiac disorder Hypertension Social History Smoking Status: Never smoker Second Hand Exposure: No; Hx Alcohol Use: Yes Alcohol type: beer, wine and hard liquor Hx Substance Use: No Preferred Language: Tajik Communication Ability: Effective Travel Assistant Required: No Beliefs That Will Affect Care: Confucianism marital status: Current Living Situation: Spouse current occupational status: employed current occupation: Production Coordinator Feels Safe at Home: Yes Assistive Devices: None Review of Systems Constitutional: + fatigue; no fever and no chills Respiratory: no cough and no dyspnea Cardiovascular: no chest pain Gastrointestinal: + abdominal pain and + diarrhea/loose stools; no blood in stools Integumentary: no problem reported Psychiatric: no problem reported Physical Exam Constitutional: well developed Respiratory: normal respiratory effort Cardiovascular: Rate/Rhythm: regular rate Gastrointestinal (Abdomen): normal bowel sounds, soft, nontender, no hepatosplenomegaly Musculoskeletal: Head/Neck/Chest: normocephalic Psychiatric: Orientation: alert and oriented x 3 Results & Data ([facility]) Vital Signs (Past 12 Hours) Vital Signs Temp Pulse Pulse Resp BP Pulse Ox 01/01/22 07:56 36.5 C 66 18 105/53 L 99 01/01/22 00:13 71 12/31/21 22:00 36.8 C 45 L 20 93/47 L 98 PG Care Time/CCT Total # of Minutes Spent Total Time Spent with Patient: Total time spent is greater than 50% in coordination of care (as documented) at patient's floor/unit and/or counseling patient: Coding Level of Care Code 38977 Inpt Consult Level 4 Diagnoses Crohn's ileocolitis K50.818 Digestive disease complication type: other complication C. difficile colitis A04.72 Anemia D64.9 (1) Crohn's ileocolitis Digestive disease complication type: other complication Qualified Code(s): K50.818 - Crohn's disease of both small and large intestine with other complication
[2022-01-01] MEDS: carvediloL 25 MG TAB PO SCH ×2 (09:17→21:34)
[2022-01-01] MEDS: SACCHAROMYCES BOULARDII 250 MG CAP PO SCH ×2 (10:07→21:34)
--- NOTE | 2022-01-01 14:12 | Electrocardiogram Report ---
Test Reason : Blood Pressure : / mmHG Vent. Rate : 063 BPM Atrial Rate : 063 BPM P-R Int : 160 ms QRS Dur : 166 ms QT Int : 446 ms P-R-T Axes : 044 -33 091 degrees QTc Int : 456 ms Normal sinus rhythm Left axis deviation Left bundle branch block Abnormal ECG When compared with ECG of 31-DEC-2021 05:29, No significant change was found Confirmed by Edi Barrientos ([id number]) on 01/01/2022 2:12:30 PM Referred By: REFERRED SELF Confirmed By:Edi Barrientos
[2022-01-01] MEDS: ENOXAPARIN INJ 40 MG/0.4 ML SYR SQ SCH (16:25)
--- NOTE | 2022-01-01 17:57 | XRay Report ---
XR chest 2V PA/lateral CLINICAL HISTORY: Indeterminate quant gold TECHNIQUE: 2 views of the chest were obtained. Comparison: None available at the time of this dictation. FINDINGS: No lines and tubes are seen. The cardiomediastinal silhouette is normal. The lungs are clear. No evid ence of pleural effusion or pneumothorax. IMPRESSION: No acute abnormalities, in particular no radiographic evidence of diverticulosis. ACT 112: Negative or not required by law. Electronically signed by: Yogesh Sampson M.D. 01/01/2022 5:56 PM
--- NOTE | 2022-01-01 21:14 | Hospitalist Progress Note ---
Date of Service January 01, 2022 Assessment & Plan (1) C. difficile colitis: Plan: Patient admitted with postive C diff testing in stool. Patient was initially treated with one time dose of steroids in ER. But once stool results returned. Steroids were stopped and vancomycin was initated. Usually anticpate about 3 days from start of treatment for symptoms to [place]. Hopefully, some improvement tomorrow. Patient is currently now having any signs of sepsis. On 01/01 continues to have diarrhea, but with more substance. GI added probiotic. GI also ordered TB rule out and chest x ray. (2) Crohn's ileocolitis: Plan: Patient follows with [facility] for Chron's- fatigue, loss of appetite and diarrhea, (3) Hypomagnesemia: Plan: Mag 1.5 on admission- remains with diarrhea - replete 3 GM mag - Telemetry overnight (4) Cardiomyopathy: Plan: CM with EF 25-30% - Continue with Carvedilol - asymptomatic (5) Hypertension: Plan: Controlled with above (6) Benign prostatic hyperplasia with urinary obstruction: Admission and Anticipated Discharge Date Admission Date: December 30, 2021 Subjective Patient reports that the frequency of his stools are the same. But he reports less watery. Review of Systems Review of Systems: All systems reviewed & are unremarkable except as noted in HPI & below Physical Exam Physical Exam: General: awake, alert, no apparent distress Head: Normocephalic, atraumatic ENT: PERRL, EOMI, no pharyngeal exudate, mucous membranes dry Neuro: AAO x 3, speech clear and appropriate, strength intact bilaterally 5/5, sensation intact and equal all extremities and dermatomes, no pronator drift Chest: equal rise and fall of the chest, no accessory muscle use, no heaves or thrills, Clear to auscultation, on room air, Cardiac: Regular rate and rhythm, telemetry reviewed, skin warm dry, cap refill <3 seconds, peripheral pulses +2 no JVD, no murmur, no JVD, no edema GI: NABS hypoactive, quadrants, soft, nontender to palpation, no rebound, guarding or tenderness : Spontaneously voiding, no pain, no CVA tenderness, Extremities: Normal inspection, no peripheral edema or erythema, calfs nontender to palpation Psych: Normal mood and affect Skin: no rash or erythema Results & Data Results & Data ([facility]) Vital Signs (Past 12 Hours) Vital Signs Temp Pulse Pulse Resp BP Pulse Ox 01/01/22 19:58 37.0 C 73 18 128/68 99 01/01/22 14:19 78 01/01/22 11:29 36.7 C 84 16 97/61 L 98 PG Care Time/CCT Total # of Minutes Spent Total Time Spent with Patient: Total time spent is greater than 50% in coordination of care (as documented) at patient's floor/unit and/or counseling patient: Coding Level of Care Code 25636 Subseq Hosp Care Lvl 2 Diagnoses C. difficile colitis A04.72 Crohn's ileocolitis K50.818 Digestive disease complication type: other complication Hypomagnesemia E83.42 Cardiomyopathy I42.9 Hypertension I10 Benign prostatic hyperplasia with urinary obstruction N40.1; N13.8 (1) Crohn's ileocolitis Digestive disease complication type: other complication Qualified Code(s): K50.818 - Crohn's disease of both small and large intestine with other complication
[2022-01-02] MEDS: RASPBERRY SYRUP 5 ML UDP PO SCH ×4 (05:04→21:11)
[2022-01-02] MEDS: VANCOMYCIN HCL 125 MG/2.5ML SOLN PO SCH ×4 (05:05→21:11)
[2022-01-02 07:03] LABS: Hematocrit (blood only) 27.2 % (42-52); Hemoglobin 8.7 g/dL (14.0-18.0); Mean Corpuscular Hemoglobin 24.4 pg (25-34); Mean Corpuscular Volume 76.4 fL (80-100); Mean Platelet Volume 8.2 fL (7.4-10.4); Platelet Count 379 K/uL (130-400); RDW Coefficient of Variation 15.4 % (11.5-14.5); RDW Standard Deviation 43.5 fL (36.4-46.3); Red Blood Count 3.56 M/uL (4.7-6.1); White Blood Count 5.17 K/uL (4.8-10.8)
[2022-01-02 07:30] LABS: Basophils # (auto) 0.01 K/uL (0-0.2); Basophils % (auto) 0.2 %; Eosinophils # (auto) 0.18 K/uL (0-0.5); Eosinophils % (auto) 3.5 %; Immature Granulocytes # (auto) 0.03 K/uL (0.00-0.02); Immature Granulocytes % (auto) 0.6 %; Lymphocytes # (auto) 0.77 K/uL (1.2-3.4); Lymphocytes % (auto) 14.9 %; Monocytes # (auto) 0.83 K/uL (0.11-0.59); Monocytes % (auto) 16.1 %; Neutrophils # (auto) 3.35 K/uL (1.4-6.5); Neutrophils % (auto) 64.7 %
[2022-01-02 07:41] LABS: Est GFR (African American) 112.3 ml/min; Est GFR (Non-African American) 96.9 ml/min; Potassium 3.8 mmol/L (3.5-5.1)
[2022-01-02 07:42] LABS: BUN Creatinine Ratio 20.3 (10-20); C Reactive Protein 7.82 mg/dl (0-0.5); Calcium 7.1 mg/dl (8.5-10.1); Creatinine Clr Calc Pharmacy 110.4 ml/min; Magnesium 1.4 mg/dl (1.7-2.4)
[2022-01-02] MEDS: SACCHAROMYCES BOULARDII 250 MG CAP PO SCH ×2 (08:33→20:26)
[2022-01-02] MEDS: FERROUS SULFATE 325 MG TAB PO SCH (08:33)
[2022-01-02] MEDS: carvediloL 25 MG TAB PO SCH ×2 (08:33→20:25)
[2022-01-02] MEDS: POTASSIUM CHLORIDE CRTAB 20 MEQ TABCR PO SCH ×2 (08:40→20:27)
--- NOTE | 2022-01-02 09:37 | Gastroenterology Progress Note ---
Date of Service January 02, 2022 Assessment & Plan (1) C. difficile colitis: (2) Crohn's ileocolitis: Plan: Patient is a 61 yo male with recent diagnosis of Crohn's ileocolitis and C diff. -Continue Vancomycin 125 mg QID x 10 days. -If symptoms do not improve after 48-72 hours on Vancomycin, can resume steroids. -Florastor BID (ideally given at opposite times of antibiotics). -Ferrous sulfate 325 mg po daily for anemia. -Supportive care and electrolyte replacement per primary team. -Low residue diet as tolerated. Admission and Anticipated Discharge Date Admission Date: December 30, 2021 Results & Data Results & Data ([facility]) Vital Signs (Past 12 Hours) Vital Signs Temp Pulse Pulse Resp BP Pulse Ox 01/02/22 07:42 72 01/02/22 07:38 37.1 C 73 18 99/56 L 100 01/02/22 04:28 36.6 C 73 18 106/60 100 01/02/22 02:34 83 01/01/22 23:14 36.9 C 76 18 100/57 L 98 PG Care Time/CCT Total # of Minutes Spent Total Time Spent with Patient: Total time spent is greater than 50% in coordination of care (as documented) at patient's floor/unit and/or counseling patient: Coding Level of Care Code 63061 Subs Hosp Care Lvl 3 Diagnoses C. difficile colitis A04.72 Crohn's ileocolitis K50.818 Digestive disease complication type: other complication (1) Crohn's ileocolitis Digestive disease complication type: other complication Qualified Code(s): K50.818 - Crohn's disease of both small and large intestine with other complication
[2022-01-02] MEDS: ENOXAPARIN INJ 40 MG/0.4 ML SYR SQ SCH (16:16)
--- NOTE | 2022-01-02 20:37 | Hospitalist Progress Note ---
Date of Service January 02, 2022 Assessment & Plan (1) C. difficile colitis: Plan: Patient admitted with postive C diff testing in stool. Patient was initially treated with one time dose of steroids in ER. But once stool results returned. Steroids were stopped and vancomycin was initated. Usually anticpate about 3 days from start of treatment for symptoms to [place]. Hopefully, some improvement tomorrow. Patient is currently now having any signs of sepsis. On 01/01 continues to have diarrhea, but with more substance. GI added probiotic. GI also ordered TB rule out and chest x ray. On 01/02 clinically, no improvement. inflammatory markers are improving. continue vanco dose. (2) Crohn's ileocolitis: Plan: Patient follows with [facility] for Chron's- fatigue, loss of appetite and diarrhea, (3) Hypomagnesemia: Plan: Mag 1.5 on admission- remains with diarrhea - replete 3 GM mag - Telemetry overnight (4) Cardiomyopathy: Plan: CM with EF 25-30% - Continue with Carvedilol - asymptomatic (5) Hypertension: Plan: Controlled with above (6) Benign prostatic hyperplasia with urinary obstruction: Admission and Anticipated Discharge Date Admission Date: December 30, 2021 Subjective Patient reports no improvement from yesterday in regards to his stool. Review of Systems Review of Systems: All systems reviewed & are unremarkable except as noted in HPI & below Physical Exam Physical Exam: General: awake, alert, no apparent distress Head: Normocephalic, atraumatic ENT: PERRL, EOMI, no pharyngeal exudate, mucous membranes dry Neuro: AAO x 3, speech clear and appropriate, strength intact bilaterally 5/5, sensation intact and equal all extremities and dermatomes, no pronator drift Chest: equal rise and fall of the chest, no accessory muscle use, no heaves or thrills, Clear to auscultation, on room air, Cardiac: Regular rate and rhythm, telemetry reviewed, GI: NABS hypoactive, quadrants, soft, nontender to palpation, no rebound, guarding or tenderness : Spontaneously voiding, no pain, no CVA tenderness, Extremities: Normal inspection, no peripheral edema or erythema, calfs nontende r to palpation Psych: Normal mood and affect Skin: no rash or erythema Results & Data Results & Data ([facility]) Vital Signs (Past 12 Hours) Vital Signs Temp Pulse Resp BP Pulse Ox 01/02/22 19:15 37.9 C H 97 H 18 103/63 97 01/02/22 15:35 38.1 C H 88 18 105/59 L 99 01/02/22 11:59 37.1 C 84 20 104/64 98 PG Care Time/CCT Total # of Minutes Spent Total Time Spent with Patient: Total time spent is greater than 50% in coordination of care (as documented) at patient's floor/unit and/or counseling patient: Coding Level of Care Code 81472 Subseq Hosp Care Lvl 2 Diagnoses C. difficile colitis A04.72 Crohn's ileocolitis K50.818 Digestive disease complication type: other complication Hypomagnesemia E83.42 Cardiomyopathy I42.9 Hypertension I10 Benign prostatic hyperplasia with urinary obstruction N40.1; N13.8 Time Spent (min) 25 (1) Crohn's ileocolitis Digestive disease complication type: other complication Qualified Code(s): K50.818 - Crohn's disease of both small and large intestine with other complication
[2022-01-03] MEDS: RASPBERRY SYRUP 5 ML UDP PO SCH ×4 (03:08→21:12)
[2022-01-03] MEDS: VANCOMYCIN HCL 125 MG/2.5ML SOLN PO SCH ×4 (03:08→21:12)
[2022-01-03 08:40] LABS: Hematocrit (blood only) 33.6 % (42-52); Hemoglobin 10.7 g/dL (14.0-18.0); Mean Corpuscular Hemoglobin 24.3 pg (25-34); Mean Corpuscular Hgb Conc 31.8 g/dL (32-36); Mean Corpuscular Volume 76.2 fL (80-100); Mean Platelet Volume 8.5 fL (7.4-10.4); Platelet Count 478 K/uL (130-400); RDW Coefficient of Variation 15.5 % (11.5-14.5); RDW Standard Deviation 43.4 fL (36.4-46.3); Red Blood Count 4.41 M/uL (4.7-6.1); White Blood Count 9.08 K/uL (4.8-10.8)
[2022-01-03 09:11] LABS: BUN Creatinine Ratio 16.7 (10-20); C Reactive Protein 12.76 mg/dl (0-0.5); Calcium 7.6 mg/dl (8.5-10.1); Creatinine Clr Calc Pharmacy 90.5 ml/min; Est GFR (African American) 98.5 ml/min; Potassium 4.1 mmol/L (3.5-5.1)
[2022-01-03] MEDS: FERROUS SULFATE 325 MG TAB PO SCH (09:11)
[2022-01-03] MEDS: SACCHAROMYCES BOULARDII 250 MG CAP PO SCH ×2 (09:11→21:12)
[2022-01-03] MEDS: POTASSIUM CHLORIDE CRTAB 20 MEQ TABCR PO SCH ×2 (09:24→21:19)
[2022-01-03] MEDS: carvediloL 25 MG TAB PO SCH ×2 (09:25→21:10)
[2022-01-03] MEDS: methylPREDNISolone 40 MG in SYRINGE 0 ML IV SCH ×2 (10:03→21:11)
--- NOTE | 2022-01-03 10:23 | Gastroenterology Progress Note ---
Date of Service January 03, 2022 Assessment & Plan (1) C. difficile colitis: Plan: Stool is forming and inflammatory markers are improving. -Continue Vancomycin 125 mg po q 6 hr x 10 days. -Florastor 250 mg BID. (2) Crohn's ileocolitis: Plan: -Okay to resume steroids while inpatient. -When discharged, can utilize Budesonide 9 mg po daily x 8 weeks. -Our office is currently authorizing Stelara which we will begin when able as an outpatient. We will arrange appropriate outpatient GI follow-up as well. Admission and Anticipated Discharge Date Admission Date: December 30, 2021 Subjective Patient is a 61 yo male with C diff & Crohn's ileocolitis. He notes he is still moving his bowels 10 times daily, however there is more form/substance to his stool. He is eager to return home. Review of Systems Constitutional: + fatigue; no fever and no chills Respiratory: no cough and no dyspnea Cardiovascular: no chest pain Gastrointestinal: + diarrhea/loose stools (improving, more formed stool); no abdominal pain and no blood in stools Physical Exam Constitutional: well developed Respiratory: normal respiratory effort Gastrointestinal (Abdomen): Inspection/Auscultation: abdomen normal to inspection Percussion/Palpation: abdomen soft; abdomen nontender Psychiatric: Orientation: alert and oriented x 3 Results & Data Results & Data ([facility]) Vital Signs (Past 12 Hours) Vital Signs Temp Pulse Pulse Resp BP Pulse Ox 01/03/22 07:24 36.6 C 98 H 15 100/65 98 01/03/22 03:10 36.5 C 87 18 101/64 97 01/02/22 23:44 37.5 C 89 18 97/57 L 98 01/02/22 22:27 94 H PG Care Time/CCT Total # of Minutes Spent Total Time Spent with Patient: Total time spent is greater than 50% in coordination of care (as documented) at patient's floor/unit and/or counseling patient: Coding Level of Care Code 53106 Subseq Hosp Care Lvl 3 Diagnoses C. difficile colitis A04.72 Crohn's ileocolitis K50.818 Digestive disease complication type: other complication (1) Crohn's ileocolitis Digestive disease complication type: other complication Qualified Code(s): K50.818 - Crohn's disease of both small and large intestine with other complication
[2022-01-03] MEDS: ENOXAPARIN INJ 40 MG/0.4 ML SYR SQ SCH (16:17)
[2022-01-03] MEDS: CHOLECALCIFEROL 400 UNITS 10 MCG TAB PO SCH (17:12)
--- NOTE | 2022-01-03 17:47 | Hospitalist Progress Note ---
Date of Service January 03, 2022 Assessment & Plan (1) C. difficile colitis: Plan: Patient admitted with postive C diff testing in stool. Patient was initially treated with one time dose of steroids in ER. But once stool results returned. Steroids were stopped and vancomycin was initated. Usually anticpate about 3 days from start of treatment for symptoms to [place]. Hopefully, some improvement tomorrow. Patient is currently not having any signs of sepsis. On 01/01 Continues to have diarrhea, but with more substance. GI added probiotic. GI also ordered TB rule out and chest x ray. On 01/02 clinically, no improvement. inflammatory markers are improving. continue vanco dose. On 01/03 It appears his diarrhea is finally improving. Seen around 2pm, had 4-5 BMs. Better than every 1-2 hours. Inflammatory markers were increased though, GI recommended to place on steroids. Given that patient will be on steroids, and his slow improvement to vanco, will recommend extending his treatment course at least to 14 days. If he continues to improve, anticipate discharge within 2 days give or take a day. (2) Crohn's ileocolitis: Plan: Patient follows with [facility] for Chron's- fatigue, loss of appetite and diarrhea, (3) Hypomagnesemia: Plan: Mag 1.5 on admission- remains with diarrhea - replete 3 GM mag - Telemetry overnight -ordered mag PO BID on 01/03. may repeat on 01/05 Vitamin D deficiency Vitamin D was also low and sandra replenish. (4) Cardiomyopathy: Plan: CM with EF 25-30% - Continue with Carvedilol - asymptomatic (5) Hypertension: Plan: Controlled with above (6) Benign prostatic hyperplasia with urinary obstruction: Admission and Anticipated Discharge Date Admission Date: December 30, 2021 Subjective 61 yo male reports decrease in frequency to his stools. Had about 5 BM by time of visit (early afternoon) from midnight. Review of Systems Review of Systems: All systems reviewed & are unremarkable except as noted in HPI & below Physical Exam Physical Exam: General: awake, alert, no apparent distress Head: Normocephalic, atraumatic GI: soft, nontender to palpation, no rebound, guarding or tenderness Extremities: Normal inspection, no peripheral edema or erythema, calfs nontender to palpation Psych: Normal mood and affect Skin: no rash or erythema Results & Data Results & Data ([facility]) Vital Signs (Past 12 Hours) Vital Signs Temp Pulse Pulse Resp BP Pulse Ox 01/03/22 16:02 36.7 C 80 16 110/63 95 01/03/22 14:19 82 01/03/22 11:37 36.9 C 84 18 113/64 97 01/03/22 07:24 36.6 C 98 H 15 100/65 98 01/03/22 06:25 79 PG Care Time/CCT Total # of Minutes Spent Total Time Spent with Patient: Total time spent is greater than 50% in coordination of care (as documented) at patient's floor/unit and/or counseling patient: Coding Level of Care Code 91948 Subseq Hosp Care Lvl 3 Diagnoses C. difficile colitis A04.72 Crohn's ileocolitis K50.818 Digestive disease complication type: other complication Hypomagnesemia E83.42 Cardiomyopathy I42.9 Hypertension I10 Benign prostatic hyperplasia with urinary obstruction N40.1; N13.8 (1) Crohn's ileocolitis Digestive disease complication type: other complication Qualified Code(s): K50.818 - Crohn's disease of both small and large intestine with other complication
[2022-01-03] MEDS: MAGNESIUM OXIDE 400 MG TAB PO SCH (21:10)
[2022-01-04] MEDS: VANCOMYCIN HCL 125 MG/2.5ML SOLN PO SCH ×3 (04:01→16:25)
[2022-01-04] MEDS: RASPBERRY SYRUP 5 ML UDP PO SCH ×3 (04:01→16:25)
--- NOTE | 2022-01-04 08:21 | Hospitalist Progress Note ---
Date of Service January 04, 2022 Assessment & Plan (1) C. difficile colitis: Plan: 12/30 admit. 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 Albrecht), Chron's ileocolitis, anemia, HTN who presented for c dif, is on oral vanc Patient admitted with postive C diff testing in stool. Patient was initially treated with one time dose of steroids in ER. But once stool results returned. Steroids were stopped and vancomycin was initated. Usually anticpate about 3 days from start of treatment for symptoms to [place]. Hopefully, some improvement tomorrow. Patient is currently not having any signs of sepsis. On 01/01 Continues to have diarrhea, but with more substance. GI added probiotic. GI also ordered TB rule out and chest x ray. On 01/02 clinically, no improvement. inflammatory markers are improving. continue vanco dose. On 01/03 It appears his diarrhea is finally improving. Seen around 2pm, had 4-5 BMs. Better than every 1-2 hours. Inflammatory markers were increased though, GI recommended to place on steroids. Given that patient will be on steroids, and his slow improvement to vanco, will recommend extending his treatment course at least to 14 days. If he continues to improve, anticipate discharge within 2 days give or take a day. (2) Crohn's ileocolitis: Plan: Patient follows with [facility] for Chron's- fatigue, loss of appetite and diarrhea, (3) Hypomagnesemia: Plan: Mag 1.5 on admission- remains with diarrhea - replete 3 GM mag - Telemetry overnight -ordered mag PO BID on 01/03. may repeat on 01/05 Vitamin D deficiency Vitamin D was also low and sandra replenish. (4) Cardiomyopathy: Plan: CM with EF 25-30% - Continue with Carvedilol - asymptomatic (5) Hypertension: Plan: Controlled with above (6) Benign prostatic hyperplasia with urinary obstruction: Admission and Anticipated Discharge Date Admission Date: December 30, 2021 Review of Systems Review of Systems: All systems reviewed & are unremarkable except as noted in HPI & below Physical Exam Physical Exam: General: Grossly A&O. NAD. Cooperative. HEENT: Atraumatic, normocephalic. EOMI Pulm: CTAB. -wheezes, -rales, -rhonchi. No respiratory distress. Cardiac: RRR, -mrg. Radial pulses intact and symmetrical. Abdominal: Nontender, nondistended, soft. Results & Data Results & Data ([facility]) Vital Signs (Past 12 Hours) Vital Signs Temp Pulse Pulse Resp BP Pulse Ox 01/04/22 07:41 36.6 C 63 16 114/67 98 01/04/22 04:21 36.4 C L 63 20 95/55 L 99 01/04/22 04:00 28 L 01/03/22 23:27 65 01/03/22 22:00 36.5 C 68 20 107/67 98 01/03/22 21:09 82 18 119/60 Resident Activity Tracking Resident Involvement: Resident Care Provided Care Provided: Adult Hospital Medicine (1) Crohn's ileocolitis Digestive disease complication type: other complication Qualified Code(s): K50.818 - Crohn's disease of both small and large intestine with other complication
[2022-01-04 08:43] LABS: Hemoglobin 9.4 g/dL (14.0-18.0); Mean Corpuscular Hemoglobin 24.3 pg (25-34); Mean Corpuscular Hgb Conc 32.4 g/dL (32-36); Mean Corpuscular Volume 74.9 fL (80-100); Mean Platelet Volume 8.4 fL (7.4-10.4); Platelet Count 429 K/uL (130-400); RDW Coefficient of Variation 15.6 % (11.5-14.5); RDW Standard Deviation 42.7 fL (36.4-46.3); Red Blood Count 3.87 M/uL (4.7-6.1); White Blood Count 5.73 K/uL (4.8-10.8)
[2022-01-04 09:04] LABS: Anion Gap 4 (3-11); BUN Creatinine Ratio 20.8 (10-20); Blood Urea Nitrogen 16 mg/dl (6-23); C Reactive Protein 8.73 mg/dl (0-0.5); Calcium 7.5 mg/dl (8.5-10.1); Carbon Dioxide 23 mmol/L (21-32); Chloride 106 mmol/L (98-107); Creatinine Clr Calc Pharmacy 112.9 ml/min; Est GFR (African American) 113.5 ml/min; Est GFR (Non-African American) 97.9 ml/min; Glucose 205 mg/dl (70-99(Fasting)); Potassium 4.5 mmol/L (3.5-5.1); Sodium 133 mmol/L (136-145)
[2022-01-04 09:05] LABS: Iron 35 mcg/dl (35-175); Transferrin < 95 mg/dl (200-360); Unsaturated Iron Binding Cap 91 mcg/dl (155-355)
[2022-01-04 09:18] LABS: Ferritin 130.3 ng/ml (8-388)
[2022-01-04] MEDS: carvediloL 25 MG TAB PO SCH ×2 (09:20→09:45)
[2022-01-04] MEDS: CHOLECALCIFEROL 400 UNITS 10 MCG TAB PO SCH (09:20)
[2022-01-04] MEDS: SACCHAROMYCES BOULARDII 250 MG CAP PO SCH ×2 (09:21→09:44)
[2022-01-04] MEDS: MAGNESIUM OXIDE 400 MG TAB PO SCH ×2 (09:21→09:44)
[2022-01-04] MEDS: methylPREDNISolone 40 MG in SYRINGE 0 ML IV SCH (09:21)
[2022-01-04] MEDS: FERROUS SULFATE 325 MG TAB PO SCH ×2 (09:21→09:44)
--- NOTE | 2022-01-04 09:22 | Communication Note ---
Date of Service: January 04, 2022 Patient is a 61 yo male with C diff & Crohn's ileocolitis.In addition to his C diff treatment, when discharged please discharge patient on Prednisone taper beginning at 40 mg daily x 7 days and reducing by 5 mg weekly for a total of 8 weeks. Our office is currently arranging further outpatient needs at this time.
[2022-01-04] MEDS: POTASSIUM CHLORIDE CRTAB 20 MEQ TABCR PO SCH ×2 (09:25→09:44)
--- NOTE | 2022-01-04 09:48 | Communication Note ---
Date of Service: January 04, 2022 telemetry w/ 10 seconds of farzad to HR of 20s at 4AM. Patient endorses hx of arrhythmia (does not think it is afib) and follows cardiology (Dr. Albrecht). Per p mckay, was evaluated for pacemaker in past and placement was not indicated at the time. plan: hold coreg.
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
[2022-01-04 10:47] LABS: Quantiferon Mitogen-NIL 0.28 IU/mL; Quantiferon NIL 0.03 IU/mL; Quantiferon TB Gold Plus INDETERMINATE (NEGATIVE)
[2022-01-04] MEDS ORDERED: MAGNESIUM SULFATE / D5W 1 GM/100 ML BAG IV STA (13:31)
[2022-01-04] MEDS: ENOXAPARIN INJ 40 MG/0.4 ML SYR SQ SCH (16:24)
--- NOTE | 2022-01-04 19:05 | Billing Data ---
Date of Service January 04, 2022 Coding Level of Care Code D/C DAY MANAGEMENT <30 MINS
--- NOTE | 2022-01-05 07:28 | Electrocardiogram Report ---
Test Reason : Blood Pressure : / mmHG Vent. Rate : 060 BPM Atrial Rate : 060 BPM P-R Int : 166 ms QRS Dur : 170 ms QT Int : 486 ms P-R-T Axes : 029 -33 089 degrees QTc Int : 486 ms Sinus rhythm with Premature ventricular complexes Left axis deviation Left bundle branch block Abnormal ECG When compared with ECG of 01-JAN-2022 05:18, Premature ventricular complexes are now Present Confirmed by Daniel Diaz ([id number]) on 01/05/2022 7:28:24 AM Referred By: REFERRED SELF Confirmed By:Daniel Diaz
== END 2022-01-04 19:10 | disposition home or self-care (01) | DRG 372 ==
LOC: ED 08:10 → SUATTDRO 11:43 → EDINP 11:43 → 2W 13:41

== ENCOUNTER 2024-05-01 09:34 | Observation (INO) ==
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
[2024-05-01] MEDS: LR 15ML/HR IV SCH (10:50)
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
[2024-05-01] MEDS ORDERED: PROPOFOL IV EMULSION 10 MG/ML 20 ML VIAL IV ONE (11:33)
[2024-05-01] MEDS ORDERED: MIDAZOLAM HCL 1 MG/ML 2ML VIAL ONE (11:33)
[2024-05-01] MEDS ORDERED: LIDOCAINE 2% 2 ML VIAL/AMP(20MG/ML) INFIL ONE (11:33)
[2024-05-01] MEDS ORDERED: fentaNYL citrate PF 100 MCG/2 ML VIAL ONE ×2 (11:33→13:05)
[2024-05-01] MEDS ORDERED: fentaNYL citrate PF 100 MCG/2 ML VIAL IV PRN (11:35)
[2024-05-01] MEDS ORDERED: ONDANSETRON INJ 2 MG/ML 2 ML VIAL IV PRN (11:35)
[2024-05-01] MEDS ORDERED: ePHEDrine sulfate 50 MG/ML AMP IV PRN (11:35)
[2024-05-01] MEDS ORDERED: ATROPINE SULFATE 0.1 MG/ML 10ML SYR IV PRN (11:35)
[2024-05-01] MEDS: CIPROFLOXACIN / D5W 400 MG/200 ML BAG IV SCH (12:36)
[2024-05-01] MEDS ORDERED: KETAMINE HCL 10MG/ML SYR ONE (12:41)
[2024-05-01] MEDS ORDERED: DexMEDEtomidine HCL IV 100 MCG/ML VIAL IV ONE (13:03)
--- NOTE | 2024-05-01 13:46 | Operative Report ---
PG Post Operative Report Pre & Post Diagnosis Operation Date: 05/01/24 11:15 Pre-Op Diagnosis: Urinary Retention, benign prostatic hyperplasia. Post-Op Diagnosis: Urinary Retention, benign prostatic hyperplasia. I identified the patient and participated in the time-out.: Yes Procedure Operation Date: 05/01/24 11:15 Actual Procedures p Transurethral Resection of Prostate - Stan Farley MD Surgeon Stan Farley MD Land Measurer none Estimated Blood Loss 5 Findings Consistent with Post-Op Diagnosis Specimens Prostate chips for routine pathology Description of Procedure 63-year-old gentleman with urinary retention and enlarged prostate presents today for TURP. Consents were reviewed and completed, appropriate antibiotics administered and general anesthesia induced. He was placed in supine position in the dorsolithotomy. Sterile prep and drape. To begin the case I passed a 27 Tamazight resectoscope with 30 degree lens. Inspection revealed a healthy-appearing urethra without strictures. He has an enlarged prostate with substantial lateral lobe obstruction and intravesical intrusion circumferentially. He has a heavily trabeculated bladder that is otherwise healthy. I began to resect the posterior portion of the bladder neck by incising at 5 and 7:00. I continuously checked to confirm I did not encroach upon the ureteral orifices. I then flatten the posterior bladder neck followed by resection of the right and left lateral wall of the bladder neck. I proceeded then to resect the lateral lobes from the left and right. He had redundant anterior tissue as well as some posterior tissue which was ultimately trimmed. I completed my resection by trimming apical tissue. Meticulous hemostasis was obtained. All chips were evacuated and passed off the table. A 22 Tamazight Garg catheter was inserted with 30 cc in the balloon. There were no complications. I attest to the content of the Intraoperative Record and any orders documented therein. Any exceptions are noted below.
--- NOTE | 2024-05-01 15:12 | Anesthesiology Progress Note ---
Date of Service May 01, 2024 Anesthesia Post Procedure Vital Signs Vital Signs: Temp Pulse Resp BP Pulse Ox O2 Del Method O2 Flow Rate 05/01/24 15:00 63 14 144/77 H 97 Room Air 05/01/24 14:50 62 20 143/76 H 96 Room Air 05/01/24 14:40 63 18 144/75 H 98 Room Air 05/01/24 14:30 64 20 149/77 H 98 Nasal Cannula 2 05/01/24 14:20 63 16 149/78 H 98 Nasal Cannula 2 05/01/24 14:10 66 14 140/79 100 Nasal Cannula 2 05/01/24 14:00 63 20 133/72 100 Nasal Cannula 2 05/01/24 13:55 36.6 C 69 17 130/75 98 Nasal Cannula 2 05/01/24 10:27 36.6 C 66 18 145/81 H 95 Room Air Transfer of Care Handoff Completed per policy Notes Mental Status: alert / awake / arousable and participated in evaluation Patient Amnestic to Procedure: Yes Nausea / Vomiting: adequately controlled Pain: adequately controlled Airway Patency, RR, SpO2: stable & adequate BP & HR: stable & adequate Hydration State: stable & adequate Anesthetic Complications: no major complications apparent and Pt Satisfied with anesthetic care
[2024-05-01] MEDS ORDERED: oxyBUTYnin chloride 5 MG TAB PO PRN (16:34)
[2024-05-01] MEDS ORDERED: [UNRECOGNIZED DRUG - OTHER] IV SCH (16:34)
[2024-05-01] MEDS: carvediloL 12.5 MG TAB PO SCH (17:19)
[2024-05-01 20:19] VITALS: PULSE 67; RESP 16
[2024-05-01] MEDS: POTASSIUM CHLORIDE CRTAB 20 MEQ TABCR PO SCH (20:20)
[2024-05-01] MEDS: amLODIPine BESYLATE 5 MG TAB PO SCH (20:20)
[2024-05-02] MEDS: CIPROFLOXACIN / D5W 400 MG/200 ML BAG IV SCH (01:14)
[2024-05-02] MEDS: lisinopril 40 MG TAB PO SCH (07:38)
[2024-05-02] MEDS: FERROUS SULFATE 325 MG TAB PO SCH (07:38)
[2024-05-02 07:40] LABS: Hematocrit (blood only) 38.5 % (42.0-52.0); Hemoglobin 12.7 g/dl (14.0-18.0); Mean Corpuscular Hemoglobin 29.9 pg (25.0-34.0); Mean Corpuscular Volume 90.6 fL (80.0-100.0); Mean Platelet Volume 9.5 fL (9.4-12.4); Platelet Count 281 K/uL (130-400); RDW Coefficient of Variation 13.2 % (11.5-14.5); RDW Standard Deviation 43.4 fL (36.4-46.3); Red Blood Count 4.25 M/uL (4.70-6.10); White Blood Count 7.13 K/ul (4.8-10.8)
[2024-05-02 07:45] LABS: BUN Creatinine Ratio 15.2 (10-20); Calcium 8.1 mg/dl (8.6-10.3); Creatinine Clr Calc Pharmacy 109.7 ml/min; Potassium 3.9 mmol/L (3.5-5.1)
--- NOTE | 2024-05-02 08:40 | Urology Progress Note ---
Date of Service May 02, 2024 Assessment & Plan (1) Benign prostatic hyperplasia with urinary obstruction: Plan: Recovering appropriately s/p TURP Will plan on voiding trial this morning. Assuming he is able to void, he will be discharged home without his catheter. If he is unable to void, we will plan to replace catheter and he can still go home with a plan for voiding trial later this week in the urology office. Admission and Anticipated Discharge Date Admission Date: May 01, 2024 Subjective Feeling okay this morning No issues with catheter overnight has been tolerating a diet and ambulating Physical Exam Physical Exam: Well-appearing, NAD Catheter in place draining clear yellow urine, no clots or blood in the bag. PG Care Time/CCT Total # of Minutes Spent Total Time Spent with Patient: Total time spent is greater than 50% in coordination of care (as documented) at patient's floor/unit and/or counseling patient: Coding Level of Care Code 09600 SUB INP/OBS CARE /25MIN Diagnoses Benign prostatic hyperplasia with urinary obstruction N40.1; N13.8
[2024-05-02 08:49] VITALS: BP 148/85; TEMP 98.4; O2SAT 94
--- NOTE | 2024-05-02 10:44 | Discharge Summary ---
Date of Service May 02, 2024 Admission HPI Per Admitting Provider This is a 63-year-old male with history of urinary retention, he presented to the OR on 05/01/2024 for TURP and was admitted postoperatively in good condition. Admission Exam Per Admitting Provider Constitutional well developed and well nourished Neck neck nontender Respiratory normal respiratory effort; no respiratory distress and does not use accessory muscles Cardiovascular Rate/Rhythm: regular rate Vessels: radial pulses present Extremities: no edema Gastrointestinal (Abdomen) Inspection/Auscultation: abdomen normal to inspection Percussion/Palpation: abdomen soft; abdomen nontender and no guarding Ileostomy Musculoskeletal Head/Neck/Chest: normocephalic and head atraumatic Right BKAprosthesis in place Skin no rashes and no lesions Trauma: no evidence of skin trauma Neurologic awake; not obtunded Speech / Cognition: normal speech Motor/Sensory: no tremor Psychiatric Orientation: alert and oriented x 3 Genitourinary no CVA tenderness Lymphatic no lymphadenopathy Principal Diagnosis Urinary retention, BPH Discharge Exam Well-appearing, NAD Garg catheter has been in place draining clear yellow urine. He was able to void after this was removed. Discharge Data Allergies Allergy/AdvReac Type Severity Reaction Status Date / Time No Known Allergies Allergy Verified 05/01/24 10:23 Procedures Performed Operation Date: 05/01/24 11:15 Actual Procedures p Transurethral Resection of Prostate - Stan Farley MD Hospital Course (1) Benign prostatic hyperplasia with urinary obstruction: He was admitted postoperatively on 05/01/2024. Voiding trial was performed on 05/02 and he was able to void. He was discharged home in good condition. Total Time Total Time Spent Total Time Spent (In Minutes): 15 Discharge Plan Discharge Items Patient Disposition: Home - Self-Care Reason For Visit: BPH, URINARY RETENTION Discharge Diagnosis: BPH/urinary retention Activity: Resume your previous activity Lifting: Gradually increase as tolerated Bathing: No limitations Sexual Activity: When tolerated Exercise/Sports: Gradually increase as tolerated Driving/Machine Use: No limitations Non-emergency contact: Urologist Call non-emergency contact if: you have any medication questions, your pain is concerning for you, you have a fever and your temperature is above 101.5 Follow-up/Referrals: Igor Pichardo CRNP [Primary Care Provider] - Diet: Regular Addtl Attending Provider Instructions: Please continue your previous diet, take all medications as prescribed and keep follow-ups as scheduled. Please call our office at [phone] with any questions, concerns or need to reschedule appointments for any reason. We are happy to assist you. While catheter is in place, please wash with warm soapy water and a fresh washcloth twice a day with mild bar soap (Dove, Dial, etc.). Your nursing visit appointment to have your catheter removed should already be made, if you have any question regarding this, please call our office. Complete antibiotics as prescribed, if indicated. It is okay to take AZO (available over the counter) as needed for a few days to relieve burning with urination. This may cause your urine or feces to turn an orangish-color. This is expected. The only exception is if you have been prescribed Pyridium (phenazopyridine), this is the same medication and should not take AZO be taken in addition to prescription version. Please do not drive, drink alcohol or operate machinery while taking prescription pain medication. We recommend continuing a stool softener (i.e. Colace) to prevent constipation/straining for at least two weeks after your procedure. Some blood is to be expected in your urine as you heal, you may even see recurrences of blood in your urine for up to 4-6 months after your procedure. Drink plenty of fluids, avoid sexual or strenuous exercise and do not lift >25 pounds until your follow-up. Call [facility] at [phone] promptly if you experience: Fever of 101F or greater Pain thats not controlled with medicine Trouble urinating or inability to urinate Dark, bloody urine for more than 12 hours Pending Studies at Discharge: No Stand-Alone Forms: My imoji, Smoking Cessation Medications and DC Order Prescriptions: New ciprofloxacin HCl [Cipro] 500 mg tablet 500 mg PO BID Qty: 6 0RF Continued Renflexis 100 mg recon soln 900 mg IV Q8WK Patient Comments: last dose December 2023, missed February dose due to insurance auth amlodipine 2.5 mg tablet 2.5 mg PO HS Qty: 90 3RF potassium chloride 20 mEq tablet extended release 40 meq PO BID Qty: 360 3RF ferrous sulfate 325 mg (65 mg iron) tablet 650 mg PO QAM cholecalciferol (vitamin D3) 25 mcg (1,000 unit) capsule 25 mcg PO QAM (DME) Right lower extremity prosthetic See Rx Instructions .Route .MEDSUPPLY Qty: 1 0RF Rx Instructions: Please provide 1 new right lower extremity prosthetic for proximal t ranstibial amputation lisinopril 40 mg tablet 40 mg PO QAM carvedilol [Coreg] 12.5 mg tablet 12.5 mg PO BID Rx Instructions: must administer with a meal/food Discontinued Prostate Max Plus 125 mg-10 mcg- 250 mg tablet 1 tab PO BID oxybutynin chloride 5 mg tablet 5 mg PO BID PRN (Reason: bladder spasms) Qty: 20 1RF tamsulosin [Flomax] 0.4 mg capsule 0.4 mg PO HS Qty: 30 0RF Discharge Orders: Discharge Order (Routine); Ordered 05/02/24 Ordered By: Alejo Botello/Other Patient Handouts: Prostate Anatomy, Benign Prostatic Hyperplasia Admission Data Admit Date/Time: 05/01/24 13:44 Attending Provider: Stan Farley Admit Provider: Stan Farley Primary Care Provider: Igor Pichardo Other Interventions: Discharge Summary Assessment (RN) Last Done: 05/02/24 10:41 Coding Level of Care Code 25758 IN/OBS DISCH 30 MIN/LESS Diagnoses Benign prostatic hyperplasia with urinary obstruction N40.1; N13.8
== END 2024-05-02 11:04 | disposition home or self-care (01) ==
LOC: 3N 09:34 → ASU 09:34